=== PATIENT | female | born 1965 | race Caucasian/White ===

== ENCOUNTER → 2019-11-18 | Outpatient (CLI) | payer OTHER ==
--- NOTE | 2019-11-18 14:59 | RADIOLOGY REPORT (SQ) ---
EXAM DESCRIPTION: VENOUS UNILATERAL LOWER IMAGES COMPLETED DATE/TIME: 11/18/2019 2:07 pm REASON FOR STUDY: RLE EDEMAS I97.89 OTH POSTPROC COMP AND DISORDERS OF THE CIRC SYS, NEC I87.2 VE NOUS INSUFFICIENCY (CHRONIC) (PERIPHERAL) COMPARISON: None. TECHNIQUE: Dynamic and static trujillo scale and color images acquired of the right leg venous system. S elected spectral images acquired with additional compression and augmentation maneuvers. The contrala teral common femoral vein and saphenofemoral junction were also imaged. Images stored on PACS. LIMITATIONS: None. FINDINGS: COMMON FEMORAL: Normal phasicity, compression and augmentation. No visualized echogenic ma terial on trujillo scale. No defects on color images. FEMORAL: Normal compression and augmentation. No visualized echogenic material on trujillo scale. No defe cts on color images. POPLITEAL: Normal compression, augmentation. No visualized echogenic material on trujillo scale. No defec ts on color images. CALF VESSELS: Normal compression, augmentation. No visualized echogenic material on trujillo scale. No de fects on color images. GSV and SSV: Normal compression, augmentation. No visualized echogenic material on trujillo scale. No def ects on color images. ANY DEEP VENOUS INSUFFICIENCY: Not evaluated. ANY EVIDENCE OF POPLITEAL CYST: No. OTHER: No other significant finding. CONTRALATERAL COMMON FEMORAL VEIN AND SAPHENOFEMORAL JUNCTION: Normal phasicity, compression and augmentation. No visualized echogenic material on trujillo scale. No de fects on color images. IMPRESSION: NO EVIDENCE DVT OR SVT IN THE RIGHT LEG. TECHNICAL DOCUMENTATION: JOB ID: [id number] 2010 [email or web address]- All Rights Reserved Reading location - IP/workstation name: [email or web address]
== END ==
LOC: SP 12:38
PROVIDERS: ATTEND Nurse Practitioner Primary Care
DX: I97.89 Other postprocedural complications and disorders of the circulatory system, not elsewhere classified (principal); I87.2 Venous insufficiency (chronic) (peripheral)
CPT/HCPCS: 93971